=== PATIENT | male | born 1985 | race Hispanic/Latino ===

== ENCOUNTER 2025-04-21 07:56 | Outpatient (CLI) | payer BC ==
[2025-04-21] MEDS ORDERED: Iopamidol 370 76% 100 ML VIAL ONE (12:13)
== END 2025-04-21 07:57 | disposition home or self-care (01) ==
LOC: CT 07:56
PROVIDERS: ATTEND Nurse Practitioner Family
DX: K70.9 Alcoholic liver disease, unspecified (principal); R16.2 Hepatomegaly with splenomegaly, not elsewhere classified; J90 Pleural effusion, not elsewhere classified; J94.8 Other specified pleural conditions
CPT/HCPCS: 74160; Q9967